=== PATIENT | male | born 1980 | race Caucasian/White ===

== ENCOUNTER → 2017-08-27 | Outpatient (CLI) | payer OTHER ==
--- NOTE | 2017-08-27 09:57 | DIAGNOSTIC IMAGING REPORT ---
(TESTICULAR) SCROTUM-CONT HISTORY: Pain LT TESTICULAR PAIN COMPARISON: None. FINDINGS: Right testis: Maximum dimension 5.2 cm. Normal vascular flow. There is small hydrocele. Left testis: Maximum dimension 5.4 cm. Normal vascular flow. IMPRESSION: Normal testicular ultrasound. Normal vascular flow to the testis. Very small right hydrocele. The above report was generated using voice recognition software. It may contain grammatical, syntax or spelling errors. Electronically signed by: Alfonso Cadet M.D. 08/27/2017 9:56 AM Dictated Date/Time: 08/27/2017 9:55 AM
== END | disposition home or self-care (01) ==
LOC: C.ULTR 09:02
PROVIDERS: ATTEND Family Medicine
DX: N50.812 Left testicular pain (principal)